=== PATIENT | female | born 2000 | race Two or more races ===

== ENCOUNTER 2023-04-20 21:34 | Emergency (ER) | payer MEDICAID, OTHER ==
[~2023-04-20] VITALS: Ht 167.6 cm; Wt 105.5 kg
[~2023-04-20 21:34] MED LIST: ATOM80CA PO
[2023-04-20 23:30] VITALS: TEMP 97.3
[2023-04-21 00:30] VITALS: BP 128/80; PULSE 71; RESP 18
[2023-04-22] MEDS ORDERED: PREN-217 PO (14:57)
== END 2023-04-21 00:54 | disposition home or self-care (01) ==
LOC: EMS 21:34
DX: O26.892 Other specified pregnancy related conditions, second trimester (principal); Z3A.24 24 weeks gestation of pregnancy; F90.9 Attention-deficit hyperactivity disorder, unspecified type
CPT/HCPCS: 76805; 93005; 99284; Z7502

== ENCOUNTER 2023-04-22 14:37 | Emergency (ER) | payer MEDICAID ==
[~2023-04-22] VITALS: Ht 167.6 cm; Wt 97.7 kg
[2023-04-22 14:56] VITALS: TEMP 98
[2023-04-22] MEDS ORDERED: PREN-217 PO (14:57)
[2023-04-22 16:53] VITALS: BP 128/79; PULSE 82; RESP 18
[2023-04-22] MEDS ORDERED: ACETAMINOPHEN 325 MG TABLET PO ONE (17:15)
== END 2023-04-22 19:05 | disposition home or self-care (01) ==
LOC: EMS 14:37
DX: S93.491A Sprain of other ligament of right ankle, initial encounter (principal); F90.9 Attention-deficit hyperactivity disorder, unspecified type; X58.XXXA Exposure to other specified factors, initial encounter; Y93.89 Activity, other specified; Y92.89 Other specified places as the place of occurrence of the external cause; Y99.8 Other external cause status
CPT/HCPCS: 84703; 99284